=== PATIENT | female | born 1960 | race Caucasian/White ===

== ENCOUNTER 2019-11-07 10:53 | Emergency (ER) | payer BC ==
[~2019-11-07] VITALS: Ht 170.2 cm; Wt 90.0 kg
[2019-11-07] MEDS ORDERED: HYDR-4383 PO (11:30)
[2019-11-07 12:58] VITALS: BP 161/84
== END 2019-11-07 12:59 | disposition home or self-care (01) ==
LOC: ER 10:54
DX: S92.352A Displaced fracture of fifth metatarsal bone, left foot, initial encounter for closed fracture (principal); S82.52XA Displaced fracture of medial malleolus of left tibia, initial encounter for closed fracture; Z79.899 Other long term (current) drug therapy; W18.39XA Other fall on same level, initial encounter; Y93.89 Activity, other specified; Y92.89 Other specified places as the place of occurrence of the external cause; Y99.8 Other external cause status
CPT/HCPCS: 29515; 73610; 73630; 99284

== ENCOUNTER 2019-11-15 09:40 | Outpatient (CLI) | payer BC ==
[~2019-11-15 09:40] MED LIST: HYDR-4383 PO
[2019-11-15 10:44] VITALS: BP 143/97
== END 2019-11-15 10:30 | disposition home or self-care (01) ==
LOC: ORTHO 09:40
PROVIDERS: ATTEND Nurse Practitioner
DX: S92.355A Nondisplaced fracture of fifth metatarsal bone, left foot, initial encounter for closed fracture (principal); X58.XXXA Exposure to other specified factors, initial encounter; Y93.89 Activity, other specified; Y92.89 Other specified places as the place of occurrence of the external cause; Y99.8 Other external cause status
CPT/HCPCS: A4590; G0463

== ENCOUNTER 2019-11-29 09:36 | Outpatient (CLI) | payer BC | END 2019-11-29 10:09 | disposition home or self-care (01) | LOC: ORTHO 09:36 | PROVIDERS: ATTEND Nurse Practitioner | DX: S82.52XD Displaced fracture of medial malleolus of left tibia, subsequent encounter for closed fracture with routine healing (principal); I10 Essential (primary) hypertension; M79.89 Other specified soft tissue disorders; M77.32 Calcaneal spur, left foot; X58.XXXD Exposure to other specified factors, subsequent encounter | CPT/HCPCS: 73610; G0463 ==

== ENCOUNTER 2019-12-27 15:34 | Outpatient (CLI) | payer BC | END 2019-12-27 16:04 | disposition home or self-care (01) | LOC: ORTHO 15:34 | PROVIDERS: ATTEND Nurse Practitioner | DX: S82.52XD Displaced fracture of medial malleolus of left tibia, subsequent encounter for closed fracture with routine healing (principal); S92.352D Displaced fracture of fifth metatarsal bone, left foot, subsequent encounter for fracture with routine healing; M79.89 Other specified soft tissue disorders; M25.472 Effusion, left ankle; X58.XXXD Exposure to other specified factors, subsequent encounter | CPT/HCPCS: 73610 ==